=== PATIENT | male | born 1960 | race Caucasian/White ===

== ENCOUNTER → 2016-08-10 | Outpatient (CLI) | payer MEDICARE, OTHER ==
[~2016-08-10] MED LIST: AMLO5TAB PO; AMOXICILLIN/CLA1 TA1 PO; ASPIRIN CHILDRE81 M1 PO; B-12500 MCG PO; BACLOFEN 10MG T10 MG PO; BENADRYL 25MG C25 MG PO; BYSTOLIC5 MG PO; CALCIUM1 TA1 PO; CARLSON VITAM2000 IU PO; CLARITIN 10MG T10 MG PO; CLARITIN-D 10 M1 T24 PO; CLARITIN10 MG OR; CLOPIDOGREL75 M2 PO; CO Q-10300 MG PO; COUMADIN 7.5MG7.5 MG PO; CYMBALTA30 MG PO; D3-55000 IU PO; DIGOX0.25 MG PO; DOLOBID 500MG500 MG PO; DOLOBID500 MG PO; FLEXERIL10 MG PO; FUROCOT40 MG PO; K-TAB20 MEQ PO; KEPPRA250 MG PO; KLONOPIN 0.5MG0.5 MG NG; LASIX 40MG. TAB40 MG PO; LIORESAL 10MG.10 MG PO; LIPITOR10 MG PO; LISINOPRIL10 MG PO; METOPROLOL TAR100 MG PO; NITROGLYCERIN0.4 MG SL; NUVIGIL150 MG PO; PANTOPRAZOLE SO40 M1 PO; PLAQUENIL200 MG PO; POTASSIUM CHLO10 ME3 PO; PRILOSEC20 M1 PO; PROAIR HFA0.09 MG/AC IH; REGLAN 10 MG TA10 MG PO; SIMVASTATIN20 MG PO; SINEMET 25-1001 EACH PO; SINEMET 25/1001 TAB PO; SINEMET CR 50/1 EACH PO; SYMBICORT1 AER IH; VICODIN 5/500 T1 TAB PO; VITAMIN B122500 MC1 PO; VOLTAREN75 MG PO; WARFARIN SOD5 M1 PO; WARFARIN SOD5 MG PO
--- NOTE | 2016-08-10 13:28 | RADIOLOGY REPORT PS360 ---
History and Indications: Coronary artery disease, bypass surgery, hypertension, diabetes, hyperlipidemia, family history, chest pain and shortness of breath. Procedure: Patient received a 0.4 mg of Lexiscan, resting heart rate was 75 bpm resting blood pressure 131/63. With Lexiscan maximum heart rate achieved was 92 bpm which is less than 85% of the maximum predicted heart rate and a blood pressure was 109/57. With Lexiscan patient complained of chest tightness and shortness of breath and stomach discomfort. Electrocardiogram: Resting electrocardiogram showed sinus rhythm nonspecific ST-T changes, with intravenous adenosine occasional premature ventricular complex seen less than 1.[address] segment depression noted from the baseline EKG. The EKG portion of the Lexiscan is nondiagnostic. Cardiac stress and resting SPECT images: Cardiac stress and the suspect images were obtained using technetium 99 Myoview 10.5 mCi at rest and 31.5 mCi at stress, gated SPECT further analysis of segmental wall motion and calculation of the ejection fraction also done. Cardiac stress and the suspect images show a mild fixed defect in the inferior wall with normal contractility gated SPECT is likely secondary to soft tissue attenuation, no reversible ischemia seen. Computer derived ejection fraction 60% with no obvious regional wall motion abnormality, right ventricle is mildly enlarged with normal contractility. Conclusion: 1. The EKG portion of the Lexiscan is nondiagnostic secondary to baseline abnormal EKG. 2. No obvious scintigraphic evidence of reversible ischemia seen. Computer derived ejection fraction 60% with no obvious regional wall motion abnormality, right ventricle is mildly enlarged with normal contractility.
--- NOTE | 2016-08-10 13:55 | RADIOLOGY REPORT PS360 ---
PROCEDURE: 2-D M-mode and color Doppler study. INDICATIONS FOR THE TEST: Chest pain COPD Heart Murmur Tobacco Smoking Palpitations Fatigue Syncope Edema HypertensionXDiabetes Mellitus Rheumatic Fever SOB LARA Obesity HyperlipidemiaX Family History HD Additional History CM,CAD,CABG, AF, ASD, REPAIR PATIENT INFORMATION HEIGHT: 74 WEIGHT:360 GENDER: Male B/P:120/74 2-D/M-MODE INTERPRETATION: 2-D MEASUREMENTS OBSERVED VALUES IN CMS Right Ventricular Dimension (RVDd) 2.9 Interventricular Septum (Thickness)(IVsd) .9 Left Ventricular Internal Dimensions(LVIDd) 6.5 Left Ventricular Posterior Wall (Thickness)(LVPWd) .9 Aortic Root 3.2 Aortic Cusp Separation 1.9 Left Atrial Dimensions (LAD) 3.2 2D 1. Left atrium is qualitatively moderately enlarged, left ventricle is mildly dilated, there is severely reduced left ventricular systolic function, visually estimated ejection fraction of 20-25%, the posterolateral wall contractility is preserved rest of the myocardial segments are severely hypo to akinetic. 2. The right atrium is mildly enlarged, right ventricle is mildly dilated with normal contractility, there is a pacemaker lead seen in the right atrium and right ventricle. 3. The aortic valve is thickened and calcified, leaflet continue to display mobility 4.The mitral valve leaflets are minimally thickened. 5. The pulmonic valve is not well visualized. 6. The tricuspid valve leaflets are minimally thickened. 7. No significant pericardial effusion noted. DOPPLER INTERROGATION: Doppler interrogation of the aortic mitral and tricuspid valvular presence of moderate to severe mitral and moderate tricuspid regurgitation, calculated right ventricular systolic pressure is 35 mmHg. Diastolic parameters are inconclusive. CONCLUSION: 1. Moderately enlarged left atrium, dilated left ventricle, severely reduced left ventricular systolic function visually estimated ejection fraction 30-35% with segmental wall motion abnormality described above. 2. Moderate to severe mitral and moderate tricuspid regurgitation, calculated right ventricular systolic pressure is 35 mmHg. 3. No significant pericardial effusion noted.
== END ==
LOC: RAD 06:52
DX: R07.9 Chest pain, unspecified (principal); R06.02 Shortness of breath; I25.10 Atherosclerotic heart disease of native coronary artery without angina pectoris; E78.5 Hyperlipidemia, unspecified; I50.9 Heart failure, unspecified; I20.9 Angina pectoris, unspecified; I42.9 Cardiomyopathy, unspecified; R00.2 Palpitations
CPT/HCPCS: A9502; J2785

== ENCOUNTER 2016-11-25 09:24 | Day surgery (SDC) | payer MEDICARE, OTHER ==
[~2016-11-25] VITALS: Ht 188 cm; Wt 158.8 kg
--- NOTE | 2016-11-25 10:51 | Operative Note ---
Colonoscopy (Tim) Procedure date: 11/25/16 Date of : 62 Procedure:Colonoscopy Colonoscopy with cold snare polypectomy Indications: Mr. Tate is a 56-year-old gentleman who is here for follow-up screening/ surveillance colonoscopy. He does state that he had a colonoscopy in 2009 that was normal. He more recently had a proctoscope in [place] with removal of skin tag/examination of anal fissure. The patient was having some rectal bleeding which has stopped. He does report occasional nausea and bowel irregularity with his heart medication. He reports no abdominal pain, weight loss or family history of colon cancer. Performing Provider: Ilya Dumont MD Referrring Provider: Paul Talamantes M.D. Sedation: MAC sedation Procedure: Prior to the procedure, a history and physical exam was performed, and patient medications and allergies were reviewed. The risks and benefits of the procedure and the sedation options and risks were discussed with the patient. All questions were answered and informed consent was obtained. Patient identification and proposed procedure were verified by the physician and the nurse. The patient was placed in a left lateral decubitus position. Throughout the procedure, the patient's blood pressure, pulse, and oxygen saturations were monitored continuously. Findings: On digital rectal examination there was normal rectal tone. There were no external hemorrhoids. The colonoscope was introduced through the anal canal to the rectum and advanced to the cecum. The ileocecal valve and appendiceal orifice were identified. The scope was advanced a short distance into the ileum which appeared grossly normal. The scope was then withdrawn into the colon. There were 2 diminutive colon polyps identified in the transverse and descending. These ranged in size from 4-5 mm and were all removed via cold snare polypectomy. The rectum itself was normal. Upon retroflexion within the rectum there were grade 1-2 internal hemorrhoids. Impressions: 1. Diminutive colonic polyps 2 2. Grade 1-2 internal hemorrhoids Recommendations: I will follow up the polyp pathology and recommend repeat colonoscopy again in 5 years based upon the polyp histology. I would encourage fiber supplementation on a long-term daily maintenance basis. Complications: None EBL (ml): 0 at 1051
[2016-11-25 12:00] VITALS: BP 151/93
== END 2016-11-25 11:44 ==
LOC: SDC 09:24
PROVIDERS: Internal Medicine Gastroenterology
PROC: 0DBM8ZX Excision of Descending Colon, Via Natural or Artificial Opening Endoscopic, Diagnostic (ICD-10-PCS; 2016-11-25)
PROC: 0DBL8ZX Excision of Transverse Colon, Via Natural or Artificial Opening Endoscopic, Diagnostic (ICD-10-PCS; principal; 2016-11-25 10:30)
DX: Z12.11 Encounter for screening for malignant neoplasm of colon (principal); K63.5 Polyp of colon; K64.0 First degree hemorrhoids; Z79.899 Other long term (current) drug therapy

== ENCOUNTER → 2016-12-28 | Outpatient (CLI) | payer MEDICARE, OTHER ==
[2016-12-28 09:05] LABS: HEMOGLOBIN 15.2 g/dL (14.1-18.0); LYMPH # 1.4 K/mm3 (0.7-4.5); LYMPH % 24.5 % (10-50)
[2016-12-28 10:24] LABS: BUN 19 mg/dL (7-18); GFR (ESTIMATED) 78 ML/MIN (>60)
== END ==
LOC: LAB 08:34
PROVIDERS: Physician Assistant
DX: R74.8 Abnormal levels of other serum enzymes (principal)